=== PATIENT | female | born 1955 | race Caucasian/White ===

== ENCOUNTER 2022-05-19 14:41 | Emergency (ER) | payer BC, MEDICARE ==
[2022-05-19] MEDS ORDERED: Lidocaine 1% 5 ML VIAL INJECT ONE (14:43)
[2022-05-19] MEDS ORDERED: Bacitracin Oint 1 GM U/D Packet TOP ONE (14:43)
== END 2022-05-19 15:21 | disposition home or self-care (01) ==
LOC: DL.ED 14:41
DX: S61.042A Puncture wound with foreign body of left thumb without damage to nail, initial encounter (principal); I10 Essential (primary) hypertension; E66.9 Obesity, unspecified; Z68.32 Body mass index [BMI] 32.0-32.9, adult; Z79.899 Other long term (current) drug therapy; Z79.82 Long term (current) use of aspirin; Z90.710 Acquired absence of both cervix and uterus; W45.8XXA Other foreign body or object entering through skin, initial encounter
CPT/HCPCS: 99282; 99283